=== PATIENT | female | born 1935 | race Caucasian/White ===

== ENCOUNTER 2016-06-01 10:46 | Day surgery (SDC) | payer MEDICARE ==
--- NOTE | 2016-05-18 07:23 | HP ---
PREOPERATIVE HISTORY AND PHYSICAL: DATE OF ADMISSION/SURGERY: 06/01/16 DATE OF OFFICE VISIT/ENCOUNTER: 05/17/16 ATTENDING SURGEON: Chapis Jimenes MD PROCEDURE: Left wrist carpal tunnel release. CHIEF COMPLAINT: Numbness and tingling in the left hand. HISTORY OF PRESENT ILLNESS: This is a 81-year-old female who has had symptoms of left carpal tunnel syndrome since before July of 2014. She had an EMG/nerve conduction study completed back in 2014, which showed findings compatible with carpal tunnel syndrome on the left. She has failed conservat franchesca treatment including cortisone injection, physical therapy, and bracing. She continues to have t ingling and numbness in the thumb, index, and middle finger and is concerned that the condition is p rogressing. She continues to wear a brace at night; however, her symptoms persist. She does have a history of a right carpal tunnel release performed several years ago and has done quite well with t hat. She is interested in pursuing a left wrist carpal tunnel release at this time. PAST MEDICAL HISTORY: 1. Hypertension. 2. Hypercholesterolemia. 3. Mild mitral stenosis. 4. Tricuspid valve leakage. 5. Meningioma. PAST SURGICAL HISTORY: 1. Aortic valve replacement, 2011. 2. ORIF, left ankle. 3. Right eye laser surgery. 4. Bilateral cataract surgery. 5. Right carpal tunnel release. 6. D and C. CURRENT MEDICATIONS: 1. One-A-Day multivitamin daily. 2. Amoxicillin 500 mg 4 tablets 1 hour prior to dental work. 3. Citrucel 500 mg 2 tabs daily. 4. Ecotrin low strength 81 mg 1 tab daily. 5. Glucosamine chondroitin 1500 mg b.i.d. 6. Hydrochlorothiazide 12.5 mg daily. 7. Os-Robert/D3 500/200 mg per unit 1 tab daily. 8. Potassium chloride ER 20 mEq daily. 9. Simvastatin 20 mg daily. 10. Travatan Z 0.004% one drop each eye q.p.m. 11. Tylenol Arthritis Pain 650 mg 2 tabs q.8 hours p.r.n. 12. Vitamin B complex 1 tab daily. ALLERGIES: HYDROCODONE, the patient reports reaction as a severe feeling of uneasiness; CLARITIN, u nknown reaction; CLINDAMYCIN causes nausea and vomiting; MELOXICAM, causes nausea and vomiting; BACT RIM, unknown reaction. FAMILY MEDICAL HISTORY: Noncontributory. SOCIAL HISTORY: The patient is retired. She denies tobacco use. She denies recreational drug use. She does admit to alcohol use on a social basis. REVIEW OF SYSTEMS: General: Negative for fevers, chills, or night sweats. No known anesthesia pro blems in the past. HEENT: Negative for headache, lightheadedness, or syncopal episodes. Integumen tary: Negative for abrasions, lesions, or open wounds. Cardiothoracic: Positive for hypertension, positive for edema. Negative for chest pain or palpitations. Pulmonary: Positive for shortness o f breath with exertion. Negative for chronic cough or COPD. GI: Negative for nausea, vomiting, sarmad rrhea, constipation, or GERD. : Negative for nocturia, urinary frequency, urgency, history of UT Is, or kidney problems. Musculoskeletal: Positive for current complaint, positive for history of le ft ankle fracture. Neurological: Negative for paresthesias, numbness, history of seizure, stroke, or epilepsy. Endocrine: Negative for diabetes or thyroid issues. Hematologic: Negative for easy b ruising, anemia, excessive bleeding, or history of DVT. Infectious Disease: Negative for history o f MRSA, hepatitis C, or HIV. PHYSICAL EXAMINATION GENERAL: Well-developed, well-nourished, 81-year-old female, in no acute distress. VITAL SIGNS: Height 5 feet 8 inches, weight 176 pounds, pulse rate 70, blood pressure 151/80. HEENT: Normocephalic, atraumatic. Pupils are equal, round, and reactive to light and accommodation . Extraocular movements are intact. NECK: Supple. No palpable lymph nodes. Throat is clear. PULMONARY: Lungs are clear to auscultation bilaterally. No wheezes, rales, or rhonchi. CARDIOTHORACIC: Regular rate and rhythm. S1, S2. No murmurs, rubs or gallops. No edema. ABDOMEN: Positive bowel sounds, soft, and nontender. NEUROLOGICAL: Alert and oriented x3. Cranial nerves II through XII are intact. Sensation is intact to light touch. MUSCULOSKELETAL: On exam of her left wrist and hand, there is thenar wasting noted along with some mild weakness with thumb abduction. She has a negative Tinel's and a negative Phalen's at the wrist . Negative Tinel's at the elbow. Sensation is intact to light touch throughout the hand, but the p atient reports a slight tingling sensation at the tips of her thumb, index, and middle finger. DIAGNOSTIC STUDIES: EMG/nerve conduction study shows evidence of left carpal tunnel syndrome. IMPRESSION: Left carpal tunnel syndrome. PLAN: The patient is scheduled to undergo a left carpal tunnel release with Dr. Jimenes on 06/01/16. She will return to the office 10 to 14 days postop for followup and suture removal. A prescription for Ultracet was e-scribed to the patient's pharmacy for postoperative pain management. HILLARY ALVAREZ [id number]/[facility] #: [id number]
[~2016-06-01 10:46] MED LIST: Buffered Lidocaine 1% SYR 3ML* 3 ML/SYR SYRINGE INTRADERM ONE; NS 0.9% 1000 ML* 1,000 ML IV SCH
[2016-06-01] MEDS ORDERED: Lidocaine 1% INJ* 10 MG/ML 30 ML SDV ONE (11:47)
[2016-06-01] MEDS ORDERED: Acetaminophen TAB* 325 MG PO PRN (11:56)
[2016-06-01] MEDS ORDERED: DiMENhydriNATE IV* 50 MG/ML VIAL IV PUSH PRN (11:56)
[2016-06-01] MEDS ORDERED: PROCHLORPERAZINE INJ 5 MG/ML 2 ML VIAL IV PRN (11:56)
[2016-06-01] MEDS ORDERED: Ondansetron INJ* 2 MG/ML VIAL IV PRN (11:56)
[2016-06-01] MEDS ORDERED: fentaNYL* 50 MCG/ML 2 ML VIAL (100 MCG VIAL) ONE (12:12)
[2016-06-01] MEDS ORDERED: Midazolam* 1 MG/ML 2 ML VIAL (2 MG) ONE (12:13)
[2016-06-01] MEDS ORDERED: KETAMINE HCL* 50 MG/ML 10 ML VIAL ONE (12:42)
[2016-06-01] MEDS ORDERED: Propofol* 10 MG/ML 20 ML BTL IV PUSH ONE (12:42)
[2016-06-01] MEDS ORDERED: Lidocaine 2% PF * 5 ML VIAL ONE (12:42)
[2016-06-01 13:34] VITALS: BP 138/67
--- NOTE | 2016-06-02 07:24 | OP ---
DATE OF OPERATION: 06/01/16 [facility] DATE OF : 39 SURGEON: Dr. Jimenes CAUSTIC CRESYLATE SHIFT SUPERINTENDENT: HILLARY Escoto ANESTHESIOLOGIST: Dr. See ANESTHESIA: Local MAC. PRE-OP DIAGNOSIS: Left carpal tunnel syndrome. POST-OP DIAGNOSIS: Left carpal tunnel syndrome. OPERATIVE PROCEDURE: Left carpal tunnel release. ESTIMATED BLOOD LOSS: Zero. TOURNIQUET TIME: 5 minutes. INDICATION FOR PROCEDURE: [place] is a 81-year-old woman with numbness and tingling in the median nerve distribution of the left hand. She presents for left carpal tunnel release. DESCRIPTION OF PROCEDURE: After procedure, the patient was brought to the operating room. She was given a sedation anesthetic, and a local infiltration with 10 cc of 1% plain lidocaine. The skin of her left hand and forearm was prepped and draped in the usual sterile fashion. The hand and forearm were exsanguinated and the tourniquet elevated to 250 mmHg. A longitudinal incision was made in the palm in line with the ring finger. We dissected through the subcutaneous tissue down to the transverse carpal ligament. The ligament was divided sharply with a knife and then more proximally with the scissors. The nerve was dissected free from the surrounding tissue, and there was an area of moderate compression at the mid portion of the ligament. The wound was irrigated and the skin edges were reapproximated with 4-0 nylon suture. The wound was dressed with Xeroform, 4x4, Webril, and an Low wrap. The patient tolerated the procedure well and was brought to the recovery room in good condition. [id number]/[facility] #: [id number] [facility]ITALSYolande
== END 2016-06-01 13:54 | disposition home or self-care (01) ==
LOC: OREAST 10:46
PROVIDERS: ATTEND Orthopaedic Surgery
DX: G56.02 Carpal tunnel syndrome, left upper limb (principal); I10 Essential (primary) hypertension; I34.2 Nonrheumatic mitral (valve) stenosis; I25.10 Atherosclerotic heart disease of native coronary artery without angina pectoris
CPT/HCPCS: J2250; J2704; J3010